=== PATIENT | male | born 1990 | race Caucasian/White ===

== ENCOUNTER → 2021-12-24 | Outpatient (CLI) | payer BC | LOC: RAD 13:59 | DX: S96.902A Unspecified injury of unspecified muscle and tendon at ankle and foot level, left foot, initial encounter (principal); M77.32 Calcaneal spur, left foot; X58.XXXA Exposure to other specified factors, initial encounter ==

== ENCOUNTER 2022-02-24 13:17 | Emergency (ER) | payer OTHER ==
[~2022-02-24] VITALS: Ht 177.8 cm; Wt 100.0 kg
[2022-02-24 14:30] LABS: BASO # 0.05 K/mm3 (0.02-0.10); EOS # 0.12 K/mm3 (0.04-0.40); EOS % 1.2 % (0.0-4.0); HEMATOCRIT 44.3 % (42.0-52.0); HEMOGLOBIN 15.2 g/dL (13.5-18.0); LYMPH# 1.79 K/mm3 (1.50-4.00); MEAN CELL VOLUME 88 fl (78-100); MEAN CORPUSCULAR HEMOGLOBIN 30 pg (27-31); MEAN CORPUSCULAR HGB CONC 34 g/dL (33-37); MEAN PLATELET VOLUME 10.4 fl (7.4-10.4); MONO # 0.96 K/mm3 (0.20-0.80); NEU # 7.38 K/mm3 (1.40-6.50); PLATELET COUNT 293 K/mm3 (130-400); RED BLOOD COUNT 5.02 M/mm3 (4.20-5.60); RED CELL DISTRIBUTION WIDTH 11.7 % (11.5-14.5); WHITE BLOOD COUNT 10.3 K/mm3 (4.8-10.8)
[2022-02-24 15:22] LABS: D-DIMER 0.32 mg/L FEU (0.15-0.50)
[2022-02-24 15:35] LABS: ALBUMIN 4.7 g/dL (3.5-5.0)
[2022-02-24 15:36] LABS: POTASSIUM 3.6 mmol/L (3.5-5.1)
[2022-02-24 15:37] LABS: CALCIUM 9.9 mg/dL (8.3-10.5)
[2022-02-24 15:38] LABS: TOTAL PROTEIN 7.6 g/dL (6.4-8.3)
[2022-02-24 15:40] LABS: TOTAL BILIRUBIN 1.1 mg/dL (0.2-1.2)
[2022-02-24 16:08] VITALS: BP 136/80
== END 2022-02-24 16:30 | disposition home or self-care (01) ==
LOC: ED 13:17
PROVIDERS: Physician Assistant
DX: R07.89 Other chest pain (principal); R74.01 Elevation of levels of liver transaminase levels
CPT/HCPCS: J1885